=== PATIENT | female | born 1955 | race Caucasian/White ===

== ENCOUNTER → 2016-09-13 | Outpatient (CLI) | payer OTHER ==
--- NOTE | 2016-09-13 14:51 | DIAGNOSTIC IMAGING REPORT ---
CHEST 2 VIEWS ROUTINE CLINICAL HISTORY: CHEST PAIN chest pain COMPARISON STUDY: 03/22/2015 FINDINGS: The bones soft tissues and hemidiaphragms are normal. The cardiomediastinal silhouette is normal. The lungs are clear. The pulmonary vasculature is normal. IMPRESSION: Negative chest. Electronically signed by: Jos Cuba M.D. 09/13/2016 2:49 PM Dictated Date/Time: 09/13/2016 2:47 PM
== END | disposition home or self-care (01) ==
LOC: C.RAD1850 14:31
PROVIDERS: ATTEND Family Medicine
DX: R07.9 Chest pain, unspecified (principal)

== ENCOUNTER → 2017-11-22 | Outpatient (CLI) | payer OTHER ==
--- NOTE | 2017-11-22 09:35 | DIAGNOSTIC IMAGING REPORT ---
MRCP CLINICAL HISTORY: ABD PAIN nausea. TECHNIQUE: MRI multi axial acquisition COMPARISON STUDY: Ultrasound 11/15/2017 FINDINGS: Prior cholecystectomy. Signal characteristics of the liver and spleen are uniform. Small exophytic cyst upper pole right kidney. No evidence for hydronephrosis. Pancreas is uniform. Biliary ductal system shows mild prominence of the common bile duct but no significant filling defects are identified. IMPRESSION: 1. Mild prominence of the biliary ductal system post cholecystectomy. 2. No well-defined filling defects within the common duct. 3. Small upper pole exophytic right renal cyst. 4. The filling defect within the common duct on the patient's prior ultrasound is not appreciated by MRI criteria. The above report was generated using voice recognition software. It may contain grammatical, syntax or spelling errors. Electronically signed by: Jos Cuba M.D. 11/22/2017 9:34 AM Dictated Date/Time: 11/22/2017 9:25 AM
== END | disposition home or self-care (01) ==
LOC: C.MRI 08:15
PROVIDERS: ATTEND Internal Medicine Gastroenterology
DX: R93.5 Abnormal findings on diagnostic imaging of other abdominal regions, including retroperitoneum (principal); R10.11 Right upper quadrant pain; N28.1 Cyst of kidney, acquired